=== PATIENT | male | born 1975 | race Caucasian/White ===

== ENCOUNTER 2021-01-07 09:46 | Emergency (ER) | payer OTHER ==
[~2021-01-07] VITALS: Ht 177.8 cm; Wt 88.5 kg
[2021-01-07] MEDS ORDERED: SYNTHROID175 MCG PO (09:52)
[2021-01-07] MEDS ORDERED: KETO10TA2 PO (16:17)
[2021-01-07] MEDS ORDERED: PYRIDIUM DS200 MG PO (16:17)
== END 2021-01-07 16:27 | disposition home or self-care (01) ==
LOC: ER 09:46
DX: R31.0 Gross hematuria (principal); R10.31 Right lower quadrant pain

== ENCOUNTER 2024-07-24 20:28 | Emergency (ER) | payer OTHER ==
[~2024-07-24] VITALS: Ht 180.3 cm; Wt 83.9 kg
[~2024-07-24 20:28] MED LIST: KETO10TA2 PO; PYRIDIUM DS200 MG PO; SYNTHROID175 MCG PO
[2024-07-24 21:11] VITALS: BP 140/76; O2SAT 97
[2024-07-24] MEDS ORDERED: ORPHENADRINE CITRATE 30 MG/ML AMPUL IM ONE (21:30)
[2024-07-24] MEDS ORDERED: KETOROLAC TROMETHAMINE 60 MG VIAL IM ONE (21:30)
[2024-07-24] MEDS ORDERED: MEDROLPACK PO (23:21)
== END 2024-07-24 23:45 | disposition home or self-care (01) ==
LOC: ER 20:29
DX: M25.512 Pain in left shoulder (principal); Z91.013 Allergy to seafood; Z85.850 Personal history of malignant neoplasm of thyroid; E03.8 Other specified hypothyroidism; M75.52 Bursitis of left shoulder